=== PATIENT | female | born 1965 | race Two or more races ===

== ENCOUNTER 2021-02-17 10:53 | Emergency (ER) | payer OTHER ==
[~2021-02-17] VITALS: Ht 162.6 cm; Wt 90.3 kg
[2021-02-17] MEDS ORDERED: PANTOPRAZOLE SO20 MG (11:15)
[2021-02-17] MEDS ORDERED: DRIZALMA SPRINK60 MG (11:15)
[2021-02-17] MEDS ORDERED: ATORVASTATIN CA10 MG (11:15)
[2021-02-17] MEDS ORDERED: SYNJARDY (11:15)
[2021-02-17] MEDS ORDERED: MIRTAZAPINE30 M1 (11:16)
[2021-02-17] MEDS ORDERED: ENALAPRIL MALEA10 MG (11:16)
[2021-02-17] MEDS ORDERED: BUSPIRONE HCL7.5 MG (11:16)
== END 2021-02-17 13:57 | disposition home or self-care (01) ==
LOC: ER 10:53
DX: M62.830 Muscle spasm of back (principal)